=== PATIENT | male | born 1965 ===

== ENCOUNTER 2018-12-10 12:40 | Outpatient (CLI) | payer OTHER ==
--- NOTE | 2018-12-10 14:25 | CT ---
CT Lumbar Spine WO Con History: [M a 50.061. Low back pain.] Comparison: MRI lumbar spine outside facility March 2018 Findings: Visualized lung bases are clear. No retroperitoneal adenopathy. Aortic contour is nonaneurysmal. No hydronephrosis. Paraspinal musculature is symmetric. No acute fracture or malalignment. No pars interarticularis defe cts. No lumbosacral transitional vertebra. Levels are as follows: L1/L2: Low-grade circumferential disc bulge. No significant neural foraminal or spinal canal narrowin g. L2/L3: Low-grade circumferential disc bulge. Bilateral subforaminal posterior disc osteophyte complex es. Bridging anterior osteophyte. Mild bilateral neural foraminal narrowing. L3/L4: Circumferential disc bulge. Moderate bilateral neural foraminal narrowing. L4/L5: Circumferential disc bulge. Moderate bilateral neural foraminal narrowing. L5/S1: Low-grade disc bulge. No significant neural foraminal or spinal canal narrowing. Impression: Multilevel [id number] spondylosis with multilevel neural foraminal narrowing. No sp inal canal narrowing. No fracture or malalignment. Nor pars interarticularis defects.
== END 2018-12-10 12:41 | disposition home or self-care (01) ==
LOC: SCSCT 12:40
PROVIDERS: ATTEND Neurological Surgery
DX: M48.061 Spinal stenosis, lumbar region without neurogenic claudication (principal); M43.06 Spondylolysis, lumbar region; M54.5 Low back pain; M47.816 Spondylosis without myelopathy or radiculopathy, lumbar region
CPT/HCPCS: 72131